=== PATIENT | female | born 1950 | race Caucasian/White ===

== ENCOUNTER 2017-06-13 10:17 | Emergency (ER) | payer BC ==
[~2017-06-13] VITALS: Ht 160 cm; Wt 65.5 kg
[~2017-06-13 10:17] MED LIST: ADVIL200 MG PO; ASPIR-TRIN325 M1 PO; CIPRO500 MG PO; DILAUDID2 MG PO; ENDOCET 5-3251 EACH PO; FLOMAX0.4 MG PO; MELATONIN PO; MELATONIN1 MG PO; MELATONIN3 MG PO; NOHOMEMEDS; TORADOL10 MG PO; ZOFRAN ODT4 MG PO; ZOFRAN4 MG PO
[2017-06-13 13:28] VITALS: BP 140/63
== END 2017-06-13 13:29 | disposition home or self-care (01) ==
LOC: EME 10:17
DX: S53.104A Unspecified dislocation of right ulnohumeral joint, initial encounter (principal); W08.XXXA Fall from other furniture, initial encounter; Z87.442 Personal history of urinary calculi; Z90.49 Acquired absence of other specified parts of digestive tract; Z90.710 Acquired absence of both cervix and uterus; Z88.0 Allergy status to penicillin; Z88.2 Allergy status to sulfonamides
CPT/HCPCS: 73080; 73090; 99281; 99285